=== PATIENT | male | born 1970 | race Caucasian/White ===

== ENCOUNTER 2017-09-07 13:02 | Emergency (ER) | payer OTHER, MEDICAID ==
[~2017-09-07] VITALS: Ht 182.9 cm; Wt 104.3 kg
[~2017-09-07 13:02] MED LIST: FLEXERIL PO; IBUPROFEN 800800 M1 PO; NORCO 5-325 TA1 EAC1 PO; NORCO 5-325 TA1 EACH PO; PROVENTIL
[2017-09-07] MEDS ORDERED: ACETAMINOPHEN-1 EAC1 PO (13:27)
[2017-09-07] MEDS ORDERED: CLEOCIN HCL300 MG PO (13:27)
[2017-09-07 13:39] VITALS: BP 150/76
== END 2017-09-07 13:40 | disposition home or self-care (01) ==
LOC: M.ERS 13:02
DX: K02.9 Dental caries, unspecified (principal); J45.909 Unspecified asthma, uncomplicated; F17.210 Nicotine dependence, cigarettes, uncomplicated

== ENCOUNTER 2018-06-21 01:06 | Inpatient (IN) | payer OTHER, MEDICAID ==
[~2018-06-21] VITALS: Ht 182.9 cm; Wt 104.3 kg
[~2018-06-21 01:06] MED LIST changes: +ACETAMINOPHEN-1 EAC1 PO; +CLEOCIN HCL300 MG PO
[2018-06-21 01:14] VITALS: BP 173/100
[2018-06-21 01:50] LABS: ABSOLUTE BASOPHILS 0.1 thou/uL (0.0-0.2); ABSOLUTE EOSINOPHILS 0.5 thou/uL (0.0-0.7); ABSOLUTE LYMPHOCYTES 3.1 thou/uL (0.8-5.3); ABSOLUTE MONOCYTES 0.8 thou/uL (0.0-1.2); ABSOLUTE NEUTROPHILS 11.1 thou/uL (1.6-8.1); BASOPHILS 0.7 %; EOSINOPHILS 3.5 %; HEMATOCRIT 46.4 % (42.0-52.0); HEMOGLOBIN 15.9 gm/dL (14.0-18.0); LYMPHOCYTES 19.8 %; MCH 31.5 pg (26.0-34.0); MCHC 34.4 g/dL (28.0-37.0); MCV 91.7 fL (80.0-100.0); MONOCYTES 5.2 %; MPV 11.2 fl. (7.2-11.1); NUCLEATED RBCS 0 /100WBC; PLATELET COUNT* 251 thou/uL (150-400); POLYS 70.8 %; RBC 5.06 mil/uL (4.50-6.00); RDW-CV 13.1 % (10.5-14.5); WBC 15.7 thou/uL (4.0-11.0)
[2018-06-21 02:02] LABS: ALBUMIN 4.2 g/dL (3.4-5.0); CREATININE 1.5 mg/dL (0.6-1.3); POTASSIUM 3.7 mmol/L (3.5-5.1); TOTAL BILIRUBIN 1.8 mg/dL (<0.1-1.0); TOTAL PROTEIN 7.4 g/dL (6.4-8.2)
[2018-06-21 04:03] VITALS: BP 154/85
[2018-06-21 04:53] VITALS: BP 121/76
[2018-06-21 08:00] VITALS: BP 137/86
[2018-06-21 09:48] LABS: CALCIUM 8.7 mg/dL (8.5-10.1); CREATININE 1.1 mg/dL (0.6-1.3); POTASSIUM 4.3 mmol/L (3.5-5.1)
[2018-06-21 13:57] LABS: URINE BILIRUBIN NEGATIVE (Negative); URINE BLOOD TRACE (Negative); URINE CLARITY CLEAR; URINE COLOR YELLOW; URINE GLUCOSE-RANDOM NEGATIVE (Negative); URINE KETONES NEGATIVE (Negative); URINE LEUKOCYTES-REFLEX NEGATIVE (Negative); URINE NITRITE-REFLEX NEGATIVE (Negative); URINE PROTEIN NEGATIVE (Negative); URINE UROBILINOGEN 0.2 E.U./dl (0.2-1.0)
[2018-06-21 16:01] VITALS: BP 122/85
[2018-06-21 19:15] VITALS: BP 134/77
[2018-06-22 08:00] VITALS: BP 128/93
[2018-06-22] MEDS ORDERED: FLOMAX0.4 MG PO (08:07)
[2018-06-22] MEDS ORDERED: LEVSIN-SL0.125 MG SUBLING (08:07)
[2018-06-22 09:35] VITALS: BP 134/77
[2018-06-22 09:40] VITALS: BP 134/77
[2018-06-22] MEDS ORDERED: HYDROCODON-ACE1 EAC7 PO (15:37)
[2018-06-22 15:39] VITALS: BP 134/77
[2018-06-22 15:51] VITALS: BP 134/77
[2018-06-22 16:20] VITALS: BP 134/77
== END 2018-06-22 16:45 | disposition home or self-care (01) | DRG 683 ==
LOC: M.ERS 01:06 → M.ORTHSURG 02:51 → M.TBA-ER 02:51 → M.ORTHSURG 04:19
PROVIDERS: Family Medicine; Internal Medicine; ADMIT Internal Medicine
DX: N17.0 Acute kidney failure with tubular necrosis (principal); J45.901 Unspecified asthma with (acute) exacerbation; F17.210 Nicotine dependence, cigarettes, uncomplicated; N13.2 Hydronephrosis with renal and ureteral calculous obstruction; Z84.1 Family history of disorders of kidney and ureter